=== PATIENT | female | born 1955 | race Caucasian/White ===

== ENCOUNTER 2016-08-18 13:44 | Emergency (ER) | payer MEDICARE, OTHER ==
[2016-08-18 14:02] VITALS: TEMP 98.2
[2016-08-18] MEDS ORDERED: COLCHICINE 0.6 MG TAB PO STA (14:31)
--- NOTE | 2016-08-18 14:34 | ED ---
Lower Extremity Injury HPI - General Chief Complaint: Extremity Injury, Lower Stated Complaint: Toe Pain Time Seen by Provider: 08/18/16 14:25 Source: patient, RN notes reviewed Mode of arrival: wheelchair Limitations: no limitations - History of Present Illness Initial Comments: 60-year-old female presents emergency Department with chief complaint of left foot pain by her first digit of the last few days. Patient denies any trauma. Patient states her some swelling, redness noted around that digit. Patient states that she has no history of gout. Patient states she is able to walk on but is sore and states it's sore 1 something brushes against it. Patient denies any fever, chills. Patient denies any calf pain or Swelling. Patient has no ankle pain. - Related Data Home Medications Medication Instructions Recorded Confirmed ALPRAZolam [Xanax] 0.5 mg PO TID PRN 08/18/16 08/18/16 Albuterol Nebulized [Ventolin 2.5 mg INHALATION RT-Q6H PRN 08/18/16 08/18/16 Nebulized] Albuterol Sulfate [Proair Hfa] 1 - 2 puff INHALATION RT-Q6H PRN 08/18/16 Aspirin EC [Ecotrin Low Dose] 81 mg PO DAILY 08/18/16 08/18/16 Atorvastatin [Lipitor] 40 mg PO HS 08/18/16 08/18/16 Diltiazem Cd [Cardizem Cd] 180 mg PO DAILY 08/18/16 08/18/16 HYDROcodone/APAP 5-325MG [Speculator 1 tab PO QID PRN 08/18/16 08/18/16 5-325] Hydrochlorothiazide [Hydrodiuril] 25 mg PO DAILY 08/18/16 08/18/16 Isosorbide Mononitrate ER [Imdur] 30 mg PO DAILY 08/18/16 08/18/16 Lisinopril 40 mg PO DAILY 08/18/16 08/18/16 Warfarin [Coumadin] 2.5 mg PO SUMOWEFR 08/18/16 08/18/16 Warfarin [Coumadin] 5 mg PO TUTHSA 08/18/16 08/18/16 Previous Rx's Medication Instructions Recorded predniSONE 50 mg PO DAILY #5 tab 08/18/16 Allergies Allergy/AdvReac Type Severity Reaction Status Date / Time hydralazine Allergy Unknown Verified 08/18/16 14:55 Penicillins Allergy Unknown Verified 08/18/16 14:55 Review of Systems ROS Statement: Those systems with pertinent positive or pertinent negative responses have been documented in the HPI. ROS Other: All systems not noted in ROS Statement are negative. Past Medical History Past Medical History: Diabetes Mellitus, Deep Vein Thrombosis (DVT), Hyperlipidemia, Hypertension Additional Past Medical History / Comment(s): arterial thrombosis History of Any Multi-Drug Resistant Organisms: None Reported Past Surgical History: Appendectomy, Cholecystectomy Past Psychological History: Anxiety Smoking Status: Current every day smoker Past Alcohol Use History: None Reported Past Drug Use History: None Reported General Exam Limitations: no limitations General appearance: alert, in no apparent distress Head exam: Present: atraumatic, normocephalic, normal inspection Respiratory exam: Present: normal lung sounds bilaterally. Absent: respiratory distress, wheezes, rales, rhonchi, stridor Cardiovascular Exam: Present: regular rate, normal rhythm, normal heart sounds. Absent: systolic murmur, diastolic murmur, rubs, gallop, clicks Extremities exam: Present: other (Right foot there is tenderness of the first MTP, mild erythema mild swelling there is some swelling noted up until the proximal foot there is no ankle tenderness pulses are equal bilaterally) Skin exam: Present: warm, dry Course Vital Signs 08/18/16 13:59 Temperature 98.2 F Pulse Rate 62 Respiratory 16 Rate Blood Pressure 133/63 O2 Sat by Pulse 95 Oximetry Medical Decision Making - Medical Decision Making 60-year-old female presented for right left foot pain. Patient has gout. Patient to with steroids secondary to her renal failure - Lab Data Result diagrams: 08/18/16 14:47 08/18/16 14:47 Lab Results 08/18/16 08/18/16 08/18/16 Range/Units 14:47 14:47 14:47 WBC 11.2 H (3.8-10.6) k/uL RBC 4.78 (3.80-5.40) m/uL Hgb 14.9 (11.4-16.0) gm/dL Hct 45.4 (34.0-46.0) % MCV 95.0 (80.0-100.0) fL MCH 31.1 (25.0-35.0) pg MCHC 32.7 (31.0-37.0) g/dL RDW 14.1 (11.5-15.5) % Plt Count 210 (150-450) k/uL Neutrophils % 74 % Lymphocytes % 17 % Monocytes % 4 % Eosinophils % 4 % Basophils % 1 % Neutrophils # 8.3 H (1.3-7.7) k/uL Lymphocytes # 1.9 (1.0-4.8) k/uL Monocytes # 0.5 (0-1.0) k/uL Eosinophils # 0.4 (0-0.7) k/uL Basophils # 0.1 (0-0.2) k/uL Sodium 138 (137-145) mmol/L Potassium 4.6 (3.5-5.1) mmol/L Chloride 100 (98-107) mmol/L Carbon Dioxide 28 (22-30) mmol/L Anion Gap 10 mmol/L BUN 32 H (7-17) mg/dL Creatinine 1.41 H (0.52-1.04) mg/dL Est GFR (MDRD) Af Amer 46 (>60 ml/min/1.73 sqM) Est GFR (MDRD) Non-Af 38 (>60 ml/min/1.73 sqM) Glucose 99 (74-99) mg/dL Uric Acid 10.2 H (3.7-7.4) mg/dL Calcium 10.2 (8.4-10.2) mg/dL Disposition Clinical Impression: Gout Disposition: HOME SELF-CARE Condition: Stable Instructions: Gout (ED), Low Purine Diet (ED) Additional Instructions: Please return to the Emergency Department if symptoms worsen or any other concerns. Prescriptions: predniSONE 50 mg PO DAILY #5 tab Time of Disposition: 16:18
[2016-08-18 14:58] LABS: Basophils # (A) 0.1 k/uL (0-0.2); Basophils % (A) 1 %; CH 31.8; CHCM 33.8; Eosinophils # (A) 0.4 k/uL (0-0.7); Eosinophils % (A) 4 %; HCT 45.4 % (34.0-46.0); HDW 3.12; HGB 14.9 gm/dL (11.4-16.0); Luc # (Auto) 0.08; Luc % (Auto) 1; Lymphocytes # (A) 1.9 k/uL (1.0-4.8); Lymphocytes % (A) 17 %; MCH 31.1 pg (25.0-35.0); MCHC 32.7 g/dL (31.0-37.0); Mean Platelet Volume 8.2; Monocytes # (A) 0.5 k/uL (0-1.0); Monocytes % (A) 4 %; Neutrophils # (A) 8.3 k/uL (1.3-7.7); Neutrophils % (A) 74 %; RBC 4.78 m/uL (3.80-5.40); RDW 14.1 % (11.5-15.5); WBC 11.2 k/uL (3.8-10.6); WBC (Perox) 11.26
[2016-08-18 15:05] LABS: Calcium 10.2 mg/dL (8.4-10.2); Potassium 4.6 mmol/L (3.5-5.1)
--- NOTE | 2016-08-18 15:36 | XR ---
EXAMINATION TYPE: XR foot complete LT DATE OF EXAM: 08/18/2016 3:31 PM CLINICAL HISTORY: pain TECHNIQUE: Frontal, lateral and oblique images of the left foot are obtained. COMPARISON: None. FINDINGS: There is no acute fracture/dislocation evident. Degenerative narrowing involving the first metatarsal-phalangeal joint. Mild cystic degenerative change seen. The overlying soft tissue appears unremarkable. Moderate plantar and dorsal calcaneal spurring identified. IMPRESSION: There is no acute fracture or dislocation. ICD 10 NO FRACTURE, INITIAL EVALUATION
[2016-08-18 16:36] VITALS: BP 145/65; PULSE 63; RESP 18
== END 2016-08-18 16:36 | disposition home or self-care (01) ==
LOC: EC 13:44
DX: M10.9 Gout, unspecified (principal); Z79.82 Long term (current) use of aspirin; Z79.01 Long term (current) use of anticoagulants; Z79.899 Other long term (current) drug therapy; E78.5 Hyperlipidemia, unspecified; F41.9 Anxiety disorder, unspecified; Z88.0 Allergy status to penicillin; Z88.8 Allergy status to other drugs, medicaments and biological substances; Z86.718 Personal history of other venous thrombosis and embolism; F17.200 Nicotine dependence, unspecified, uncomplicated; I12.9 Hypertensive chronic kidney disease with stage 1 through stage 4 chronic kidney disease, or unspecified chronic kidney disease; N18.9 Chronic kidney disease, unspecified
CPT/HCPCS: 36415; 80048; 84550; 85025; 99283

== ENCOUNTER → 2017-10-06 | Outpatient (CLI) | payer MEDICARE ==
--- NOTE | 2017-10-07 09:21 | CT ---
EXAMINATION TYPE: CT abdomen wo con DATE OF EXAM: 10/06/2017 HISTORY: Disorder of adrenal gland. CT DLP: 659 mGycm. Automated Exposure Control for Dose Reduction was Utilized. TECHNIQUE: CT scan of the abdomen is performed with oral but without IV contrast. COMPARISON: NONE FINDINGS: Within the limitations of a non-contrast study, the following observations are made. LUNG BASES: Calcifications at level of mitral valve are identified. There is coronary artery calcific ation seen. LIVER/GB: Cholecystectomy clips are noted. There is lobulated contour to liver raising concern for un derlying cirrhosis, clinical and lab correlation advised. PANCREAS: Some mild generalized fat replaced atrophy of pancreas is seen. SPLEEN: No significant abnormality is seen. ADRENALS: There is heterogeneous fat and soft tissue density left adrenal gland with suspected angiom yolipoma is catheter lobulated contour and is thus difficult to accurately measure. I get measurement s of 4.1 x 1.7 cm axial image 24. Right adrenal gland felt within normal limits. KIDNEYS: No renal stones or hydronephrosis is present. BOWEL: The oral contrast does reaches level of terminal ileum. There is no suspicious small or large bowel dilatation. There are diverticula in the left and visualized portion of sigmoid colon. GENITAL ORGANS: Upper portion of uterus is visualized LYMPH NODES: No greater than 1cm abdominal lymph nodes are appreciated. OSSEOUS STRUCTURES: There is prominent Schmorl node superior L1 endplate. There is mild disc space na rrowing L3-L4 and L5-S1 levels. There is prominent facet arthropathy mid to lower lumbar spine. There is sclerosis inferior aspect bilateral sacroiliac joints with some narrowing felt present. OTHER: There is moderate calcified plaque of the abdominal aorta extending into branch vessels. IMPRESSION: Angiomyolipoma left adrenal gland noted.
== END | disposition home or self-care (01) ==
LOC: RADCTMAIN 14:25
PROVIDERS: ATTEND Internal Medicine
DX: D17.79 Benign lipomatous neoplasm of other sites (principal); I10 Essential (primary) hypertension
CPT/HCPCS: 36415; 74150; 82565; 84520

== ENCOUNTER → 2017-11-28 | Outpatient (CLI) | payer MEDICARE | END | disposition home or self-care (01) | LOC: LABWHC1 07:58 | PROVIDERS: ATTEND Internal Medicine | DX: E27.9 Disorder of adrenal gland, unspecified (principal) | CPT/HCPCS: 36415; 82024; 82533 ==

== ENCOUNTER → 2017-12-14 | Outpatient (CLI) | payer MEDICARE ==
--- NOTE | 2017-12-14 11:18 | BD ---
EXAMINATION TYPE: Axial Bone Density DATE OF EXAM: 12/14/2017 CLINICAL HISTORY: Hyperparathyroidism. Height: 65 Weight: 193 FRAX RISK QUESTIONS: Alcohol (3 or more units per day): no Family History (Parent hip fracture): no Glucocorticoids (More than 3mos): no (Ex: prednisone, prednisolone, methylprednisolone, dexamethasone, and hydrocortisone). History of Fracture in Adulthood: yes, ankle, possibly back-unsure, possible 2016 elbow fx-unsure Secondary Osteoporosis: 1. Type 1 Diabetes: no 2. Hyperthyroidism: unsure 3. Menopause before 45: unsure 4. Malnutrition: no 5. Chronic liver disease: no Rheumatoid Arthritis: no Current Tobacco Use: yes RISK FACTORS HISTORY OF: Spine Fracture: unsure When: unsure Family History of Osteoporosis: unsure Active: somewhat Diet low in dairy products/other sources of calcium: about one serving a day Postmenopausal woman: yes Take estrogen and/or progesterone medications: no Lost more than 2 inches in height since high school: unsure; states may have been about 67 inches at one time Frequent falls: no Poor Health: unsure Hyperparathyroidism: yes Adrenal Insufficiency: unsure MEDICATIONS: Prednisone or other steroids: no Thyroid Medications: no Osteoporosis Medications: no Additional Medications: vitamin D; blood pressure meds, blood thinner Additional History: type II diabetic...not on meds at present, poor historian in some areas EXAM MEASUREMENTS: Bone mineral densitometry was performed using the [employer] System. Bone mineral density as measured about the Lumbar spine is: ----- L1-L4(G/cm2): 1.417 T Score Values are as follows: ----- L2: 1.2 ----- L3: 2.2 ----- L4: 2.7 ----- L1-L4: 2.0 Bone mineral density BASELINE Bone mineral density about the R hip (g/cm2): 0.914 Bone mineral density about the L hip (g/cm2): 0.848 T Score values are as follows: -----R Neck: -0.9 -----L Neck: -1.4 -----R Total: -0.5 -----L Total: -0.5 Bone mineral density BASELINE IMPRESSION: Osteopenia (T Score between -2.5 and -1) at femoral neck level left hip. There is slightly increased risk of fracture and the patient may be considered for treatment. Re-Screen 2-5 years. NOTE: T-SCORE=SD OF THE YOUNG ADULT MEAN.
== END | disposition home or self-care (01) ==
LOC: RADBDWWP 07:59
PROVIDERS: ATTEND Internal Medicine
DX: M85.852 Other specified disorders of bone density and structure, left thigh (principal); E21.3 Hyperparathyroidism, unspecified; R94.7 Abnormal results of other endocrine function studies
CPT/HCPCS: 36415; 77080; 82024; 82533

== ENCOUNTER → 2018-11-28 | Outpatient (CLI) | payer MEDICARE ==
--- NOTE | 2018-11-28 15:09 | CT ---
EXAMINATION TYPE: CT abdomen wo con DATE OF EXAM: 11/28/2018 HISTORY: Angiomyolipoma, recheck appointment CT DLP: 541.9 mGycm. Automated Exposure Control for Dose Reduction was Utilized. TECHNIQUE: CT scan of the abdomen is performed with oral but without IV contrast. IV contrast given due to diminished renal function similar to prior CT. COMPARISON: CT abdomen October 16, 2017 FINDINGS: Within the limitations of a non-contrast study, the following observations are made. LUNG BASES: Mitral calcifications redemonstrated. There is right coronary artery calcification and/or stent redemonstrated. LIVER/GB: Cholecystectomy clips are redemonstrated. Slightly lobulated contour due to cirrhosis is ag ain seen. No ascites is evident. PANCREAS: No significant abnormality is seen. SPLEEN: No significant abnormality is seen. ADRENALS: Stable low dense thickening to left adrenal gland axial image 40 measuring 4.1 x 1.9 cm. Pr esence of fat and soft tissue densities consistent with angiomyolipoma. Right adrenal gland is stable . Within normal limits. KIDNEYS: No significant abnormality is seen. BOWEL: Oral contrast does not reach colonic level. There is no suspicious small large bowel dilatatio n. Diverticula and visualized portion of the left and sigmoid colon are redemonstrated. LYMPH NODES: No greater than 1cm abdominal lymph nodes are appreciated. OSSEOUS STRUCTURES: Multilevel facet arthropathy mid to lower lumbar spine is seen. Prominent Schmorl node superior L1 endplate is redemonstrated. OTHER: No significant additional abnormality is seen. IMPRESSION: Stable 4.1 cm benign left adrenal mass or angiomyolipoma. Continued imaging monitoring is not necessary.
== END ==
LOC: RADCTMAIN 12:41
PROVIDERS: ATTEND Internal Medicine
DX: D17.9 Benign lipomatous neoplasm, unspecified (principal)
CPT/HCPCS: 36415; 74150; 82565; 84520